=== PATIENT | female | born 1930 | race Caucasian/White ===

== ENCOUNTER 2017-12-30 13:56 | Outpatient (CLI) | payer MEDICARE ==
--- NOTE | 2017-12-30 15:02 | RAD ---
RIGHT HIP 2 VIEWS: Date: 12/30/17 HISTORY: Right hip pain. FINDINGS: Moderate joint space loss. Mild osteophytosis and subchondral sclerosis. No acute fracture or disloca tion. 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 POS: [facility]
== END 2017-12-30 13:57 | disposition home or self-care (01) ==
LOC: RAD 13:56
PROVIDERS: ATTEND Nurse Practitioner Family
DX: M25.551 Pain in right hip (principal); M16.11 Unilateral primary osteoarthritis, right hip

== ENCOUNTER 2017-12-31 13:06 | Outpatient (CLI) | payer MEDICARE | END 2017-12-31 13:07 | disposition home or self-care (01) | LOC: BICRAD 13:06 | PROVIDERS: ATTEND Internal Medicine | DX: R06.02 Shortness of breath (principal); I51.7 Cardiomegaly | CPT/HCPCS: 71046 ==